=== PATIENT | female | born 1995 | race Hispanic/Latino ===

== ENCOUNTER 2023-09-10 19:55 | Emergency (ER) | payer OTHER ==
[~2023-09-10] VITALS: Ht 149.9 cm; Wt 71.2 kg
[2023-09-10 20:28] LABS: BASOPHILS # (AUTO) 0.04 K/uL (0.00-0.20); BASOPHILS % (AUTO) 0.3 % (0.0-5.0); EOSINOPHILS # (AUTO) 0.03 K/uL (0.00-0.70); EOSINOPHILS % (AUTO) 0.2 % (0.0-8.0); IMMATURE GRANULOCYTE ABSOLUTE 0.05 K/uL (0-1); LYMPHOCYTES # (AUTO) 1.3 K/uL (1.0-4.8); LYMPHOCYTES % (AUTO) 9.1 % (21.0-51.0); MEAN CORPUSCULAR HEMOGLOBIN 31.3 pg (27.0-33.0); MEAN CORPUSCULAR VOLUME 89.6 fL (79-99); MONOCYTES # (AUTO) 0.4 K/uL (0.1-1.0); MONOCYTES % (AUTO) 2.6 % (3.0-13.0); NEUTROPHILS # (AUTO) 12.7 K/uL (1.8-7.7); NEUTROPHILS % (AUTO) 87.5 % (40.0-77.0); PLATELET COUNT (AUTO) 282 K/uL (130-400); RED BLOOD CELL COUNT(AUTO) 4.69 MIL/uL (4.00-5.50); RED CELL DISTRIBUTION WIDTH 12.5 % (11.0-15.5); WHITE BLOOD COUNT (AUTO) 14.6 K/uL (4.8-10.8)
[2023-09-10 20:44] LABS: ALBUMIN 4.1 g/dL (3.5-5.0); BILIRUBIN,TOTAL 0.4 mg/dL (0.2-1.0); CREATININE 0.9 mg/dL (0.5-1.5); POTASSIUM 4.1 mmol/L (3.5-5.1); TOTAL PROTEIN, SERUM 7.9 g/dL (6.0-8.3)
[2023-09-10] MEDS ORDERED: IOHEXOL-350 75 ML VIAL IV ONE (20:44)
[2023-09-10 21:19] LABS: APPEARANCE,URINE CLOUDY (CLEAR); BILIRUBIN,URINE NEGATIVE (NEGATIVE); COLOR,URINE YELLOW (YELLOW); GLUCOSE, URINE (UA) NEGATIVE (NEGATIVE); KETONES,URINE 40 mg/dL (NEGATIVE); LEUKOCYTE ESTERASE ,URINE 250 Leu/uL (NEGATIVE); NITRATE,URINE NEGATIVE (NEGATIVE); OCCULT BLOOD,URINE LARGE (NEGATIVE); PH,URINE 7.5 (5.0-8.0); PROTEIN,URINE 50 mg/dL (NEGATIVE); UROBILINOGEN,URINE 0.2 mg/dL (0.2-1.0)
[2023-09-10 21:22] LABS: ADD UA MICROSCOPIC YES
[2023-09-10 21:24] LABS: BACTERIA,URINE FEW /HPF (None Seen); MUCUS,URINE RARE LPF (None Seen); RBC,URINE 51-100 /HPF (0-1); SQUAMOUS EPITHELIAL CELL,UR MOD /HPF (0-2); UNCLASSIFIED CRYSTAL 1 /HPF (None Seen)
[2023-09-10] MEDS ORDERED: KETOROLAC 15MG/ML VIAL (15MG/ML) ONE (21:49)
[2023-09-10] MEDS ORDERED: KETOROLAC 30MG VIAL (30MG/ML) IVP ONE (22:00)
[2023-09-10] MEDS ORDERED: TAMSULOSIN HCL 0.4 MG CAP.ER.24H PO ONE (22:00)
[2023-09-10] MEDS ORDERED: CIPR-278 PO (22:01)
[2023-09-10] MEDS ORDERED: IBUP-2070 PO (22:01)
[2023-09-10] MEDS ORDERED: ONDA4TAB10 PO (22:01)
[2023-09-10] MEDS ORDERED: TAMS-1 PO (22:01)
[2023-09-10 22:49] VITALS: BP 122/68; PULSE 65; RESP 16; O2SAT 99
== END 2023-09-10 22:53 | disposition home or self-care (01) ==
LOC: EDH 19:55
DX: N13.2 Hydronephrosis with renal and ureteral calculous obstruction (principal)
CPT/HCPCS: 99285; 74177; 96374; 80053; 84703; 85025; 87088; 81001; 36415; J1885; Q9967